=== PATIENT | female | born 1985 | race Two or more races ===

== ENCOUNTER 2016-07-21 10:49 | Outpatient (CLI) | payer OTHER ==
[~2016-07-21] VITALS: Ht 162.6 cm; Wt 81.6 kg
[~2016-07-21 10:49] MED LIST: DICLEGIS DR 101 EACH PO
[2016-07-21 11:17] VITALS: BP 132/77
[2016-07-21 11:29] VITALS: BP 134/75
== END 2016-07-21 14:45 | disposition home or self-care (01) ==
LOC: LDRP-OP → 2WEST 10:50 → LDRP-OP 09-15 14:29
PROC: 10S0XZZ Reposition Products of Conception, External Approach (ICD-10-PCS; principal; 2016-07-21)
DX: O32.1XX0 Maternal care for breech presentation, not applicable or unspecified (principal); Z3A.36 36 weeks gestation of pregnancy; O99.013 Anemia complicating pregnancy, third trimester
CPT/HCPCS: 59025; G0378; J3105

== ENCOUNTER 2016-08-10 06:31 | Inpatient (IN) | payer OTHER ==
[~2016-08-10] VITALS: Ht 162.6 cm; Wt 87.1 kg
[2016-08-10] VITALS (9 sets, daily range): BP systolic 112–146; BP diastolic 65–84
[2016-08-10 07:41] LABS: EOSINOPHIL (%) 4.9 % (0-5); EOSINOPHIL COUNT 0.4 K/uL (0-0.3); HEMATOCRIT 35.5 % (36.0-46.0); IMMATURE GRANULOCYTE (%) 1.6 % (0.0-0.7); IMMATURE GRANULOCYTE COUNT 0.1 K/uL; INSTRUMENT ABS NEUTROPHIL CT 4.7 K/uL; MCH 25.9 PG (29.0-34.0); MCHC 31.5 G/DL (30.0-36.0); MEAN PLAT.VOLUME 11.7 uM^3 (9.5-12.4); MONOCYTE (%) 11.6 % (3-12); NEUTROPHIL (%) 57.1 % (45-76); NEUTROPHIL COUNT 4.7 K/uL (1.8-6.4); PLATELET COUNT 187 K/uL (156-360); RBC DIS.WIDTH-CV 16.1 % (11.8-14.6); RBC DIS.WIDTH-SD 47.9 % (39-53); RED BLOOD COUNT 4.33 M/uL (3.80-5.20); WHITE BLOOD COUNT 8.2 K/uL (4.1-10.2)
[2016-08-11 03:00] VITALS: BP 108/65
[2016-08-11 07:02] LABS: BASOPHIL COUNT 0.1 K/uL (0-0.1); EOSINOPHIL (%) 1.8 % (0-5); EOSINOPHIL COUNT 0.2 K/uL (0-0.3); IMMATURE GRANULOCYTE (%) 0.7 % (0.0-0.7); IMMATURE GRANULOCYTE COUNT 0.1 K/uL; INSTRUMENT ABS NEUTROPHIL CT 8.1 K/uL; LYMPHOCYTE COUNT 2.3 K/uL (1.0-2.8); MCH 26.1 PG (29.0-34.0); MCV 81.5 FL (83-99); MEAN PLAT.VOLUME 12.1 uM^3 (9.5-12.4); MONOCYTE (%) 11.3 % (3-12); MONOCYTE COUNT 1.4 K/uL (0-0.8); NEUTROPHIL (%) 66.8 % (45-76); NEUTROPHIL COUNT 8.1 K/uL (1.8-6.4); PLATELET COUNT 192 K/uL (156-360); RBC DIS.WIDTH-CV 16.4 % (11.8-14.6); RBC DIS.WIDTH-SD 48.6 % (39-53); RED BLOOD COUNT 3.68 M/uL (3.80-5.20); WHITE BLOOD COUNT 12.1 K/uL (4.1-10.2)
[2016-08-11 07:49] VITALS: BP 110/65
[2016-08-11 11:05] VITALS: BP 108/58
[2016-08-11 15:16] VITALS: BP 122/72
[2016-08-11 19:22] VITALS: BP 149/85
[2016-08-12 00:09] VITALS: BP 125/84
[2016-08-12 02:57] VITALS: BP 111/60
[2016-08-12 07:08] VITALS: BP 142/85
[2016-08-12 15:15] VITALS: BP 117/77
[2016-08-12 22:46] VITALS: BP 122/88
[2016-08-13 07:10] VITALS: BP 129/75
[2016-08-13 15:43] VITALS: BP 123/81
[2016-08-13 23:43] VITALS: BP 130/69
[2016-08-14 08:33] VITALS: BP 137/89
[2016-08-14] MEDS ORDERED: FERROUS SULFAT325 MG PO (08:58)
[2016-08-14] MEDS ORDERED: IBUPROFEN800 MG PO (08:58)
[2016-08-14] MEDS ORDERED: ENDOCET 5-3251 EACH PO (08:58)
== END 2016-08-14 16:34 | disposition home or self-care (01) | DRG 765 ==
LOC: 2WEST 06:31 → 2SOUTH 10:27 → 2WEST 08-14 16:34
PROVIDERS: Obstetrics & Gynecology
PROC: 10D00Z1 Extraction of Products of Conception, Low, Open Approach (ICD-10-PCS; principal; 2016-08-10)
DX: O32.1XX0 Maternal care for breech presentation, not applicable or unspecified (principal); O69.2XX0 Labor and delivery complicated by other cord entanglement, with compression, not applicable or unspecified; O99.02 Anemia complicating childbirth; D62 Acute posthemorrhagic anemia; D50.9 Iron deficiency anemia, unspecified; O99.214 Obesity complicating childbirth; E66.3 Overweight; Z3A.39 39 weeks gestation of pregnancy; Z37.0 Single live birth; Z68.29 Body mass index [BMI] 29.0-29.9, adult
CPT/HCPCS: 85025; 86900; 86901; J0690; J1100; J2270; J2274; J2405; J3010; J3105; J7120